=== PATIENT | female | born 1975 | race Caucasian/White ===

== ENCOUNTER 2017-03-19 11:47 | Inpatient (IN) | payer BC ==
[2017-03-19] VITALS (12 sets, daily range): BP systolic 88–124; BP diastolic 40–76
[~2017-03-19] VITALS: Ht 170.2 cm; Wt 85.2 kg
[~2017-03-19 11:47] MED LIST changes: -BUPR150T6 PO; -ONDA8TAB13 PO
--- OUTSIDE RECORDS SUMMARY | 2017-03-19 11:54 | XMS REPORT | Summary of Care ---
Author Author Aramis Cruz M.D. Unknown Address [address], [place] [id number] Phone Unavailable Care Team Providers Care Blowing Weasand Name Role Phone Bubba Cruz M.D. Unavailable Unavailable Alan Meier PP Unavailable Unavailable Unavailable Functional Status Functional Status Health Issues Name Dates Details Functional status health issues are not documented Status: Cognitive Status Health Issues Name Dates Details Cognitive status health issues are not documented Status: Problems Name Dates Details Sensorineural hearing loss (389.10, H90.5) Status: Active Endometriosis (617.9, N80.9) Status: Active Female pelvic pain (625.9, R10.2) Status: Active Myalgia (729.1, M79.1) Status: Active Multiple somatic complaints (780.99, R68.89) Status: Active Numbness (782.0, R20.0) Status: Active Thoracic spine pain (724.1, M54.6) Status: Active Lower back pain (724.2, M54.5) Status: Active Paresthesia (782.0, R20.2) Status: Active Medications Name Dates Details Multi Vitamin/Minerals Oral Tablet Refills: 0 Started 01-Oct-2012 ActiveCalcium 600 MG Oral Tablet TAKE 1 TABLET DAILY. Refills: 0 Aramis Cruz M.D. Started 10-Jan-2015 ActiveVitamin D 400 UNIT Oral Tablet Take 1 tablet daily Refills: 0 Aramis Cruz M.D. Started 10-Jan-2015 ActiveFlax Seed Oil 1000 MG Oral Capsule TAKE DIRECTED. Refills: 0 Aramis Cruz M.D. Started 10-Jan-2015 ActiveVitamin C 500 MG Oral Tablet TAKE 1 TABLET DAILY. Refills: 0 Aramis Cruz M.D. Started 10-Feb-2015 Active Allergies and Adverse Reactions Name Dates Details No Known Drug Allergies Status: Active Past Medical History Name Dates Details Endometriosis (617.9, N80.9) Status: Active History of constipation (V12.79, Z87.19) Status: Resolved History of diarrhea (V12.79, Z87.19) Status: Resolved History of dizziness (V13.89, Z87.898) Status: Resolved History of Generalized pain (780.96, R52) Status: Resolved History of hypertension (V12.59, Z86.79) Status: Resolved History of low back pain (V13.59, Z87.39) Status: Resolved History of migraine (V12.49, Z86.69) Status: Resolved History of Neck stiffness (723.5, M43.6) Status: Resolved History of obesity (V13.89, Z87.898) Status: Resolved History of seizure disorder (V12.49, Z86.69) Status: Resolved History of sinusitis (V12.69, Z87.09) Status: Resolved History of syncope (V15.89, Z91.89) Status: Resolved History of Tinnitus of both ears (388.30, H93.13) Status: Resolved History of urinary frequency (V13.09, Z87.448) Status: Resolved Procedures Procedure Dates Details History of Hysterectomy History of Sinus Surgery History of Cholecystotomy History of Gastric Surgery For Morbid Obesity Laparoscopic Longitudinal Gastrectomy Completed:23-Feb-2013 History of Knee Surgery History of Appendectomy Neuro Peripheral Neuropathy Profile 9017 Ordered:24-Jan-2015 MRI CERVICAL SPINE Ordered:12-Jan-2015 Immunization Name Dates Details Immunizations not documented Family History Unknown Family Member Name Dates Details Family history of Hypertension (V17.49) Comments: Family History Status: Active Family history of Reported Cholesterol Level Was High Comments: Family History Status: Active Family history of Gallbladder Disease Comments: Family History Status: Active Family history of Diabetes Mellitus (V18.0) Comments: Family History Status: Active natural son Name Dates Details Family History Of Autism (V17.0, Z81.8) Status: Active Family history of blood dyscrasia (V18.3, Z83.2) Status: Active Grandfather Name Dates Details Family history of malignant neoplasm of urinary bladder (V16.52, Z80.52) Status: Active Mother Name Dates Details Family history of Hyperlipidemia, mild (272.4, E78.5) Status: Active Father Name Dates Details Family history of Hyperlipidemia, mild (272.4, E78.5) Status: Active Family history of skin cancer (V16.8, Z80.8) Status: Active Family history of cardiac disorder (V17.49, Z82.49) Status: Active Sister Name Dates Details Family history of Alcohol dependence (303.90, F10.20) Status: Active Family history of seizures (V19.8, Z84.89) Status: Active Family history of multiple sclerosis (V17.2, Z82.0) Status: Active Social History Name Dates Details Smoking StatusNever smoker Vital Signs Date Test Result Details 10-Feb-2015 09:00 BP Systolic 124 mm[Hg] Status: BP Diastolic 80 mm[Hg] Status: Heart Rate 76 /min Status: Weight 168.125 lb Status: Body Mass Index Calculated 26.33 kg/m2 Status: Body Surface Area Calculated 1.88 m2 Status: 24-Jan-2015 10:02 BP Systolic 126 mm[Hg] Status: BP Diastolic 66 mm[Hg] Status: Heart Rate 76 /min Status: Results Date Description Value Details 21-Jan-2015 12:36 MRI CERVICAL SPINE WITHOUT AND WITH CONTRAST (if Hx of Neck Surgery, CA, MS or RA) Comments: Exam Date: 09:44Dictation Date: 12:36 XMR SPINE CERVICAL WO/W MARIN (Better) 12:43 MRI THORACIC AND LUMBAR SPINE Comments: Exam Date: 09: 45Dictation Date: 12:43 XMR SPINE THOR/LUMB (Better) 24-Jan-2015 11:53 CBC w/ Auto Diff 7150 WBC 6.7 K/uL (Better) Range: 4.5-11.0 RBC 4.01 mil/uL (Better) Range: 3.60-5.00 HGB 12.2 g/dL (Better) Range: 12.0-16.0 HCT 35.6 % (Below low threshold) Range: 36.0-48.0 MCV 88.7 fL (Better) Range: 80.0-99.0 MCH 30.5 pg (Better) Range: 27.3-32.5 MCHC 34.4 % (Better) Range: 32.0-36.0 RDW 13.3 % (Better) Range: 11.6-14.8 PLATELETS 261 K/uL (Better) Range: 150-400 MPV 7.8 fL (Better) Range: 6.0-11.0 %NEUTRO 61.6 % (Better) Range: 37.0-80.0 %LYMPHS 28.0 % (Better) Range: 13.0-50.0 %MONO 3.1 % (Better) Range: 0.0-12.0 %EOS 5.1 % (Better) Range: 0.0-7.0 %BASO 1.1 % (Better) Range: 0.0-2.5 %RANDAL 1.1 % (Better) Range: 0.0-5.0 NEUTRO 4.1 K/uL (Better) Range: 2.0-6.9 LYMPHS 1.9 K/uL (Better) Range: 0.6-3.4 MONOS 0.2 K/uL (Better) Range: 0.0-0.9 EOS 0.3 K/uL (Better) Range: 0.0-0.7 BASO 0.1 K/uL (Better) Range: 0.0-0.2 12:18 Comprehensive Metabolic Panel 1212 SODIUM 136 mmol/L (Better) Range: 133-144 POTASSIUM 3.4 mmol/L (Below low threshold) Range: 3.5-5.1 CHLORIDE 101 mmol/L (Better) Range: 98-110 CARBON DIOXIDE 24.5 mmol/L (Better) Range: 23.0-33.0 ANION GAP 11 mmol/L (Better) Range: 6-16 BUN 14 mg/dL (Better) Range: 7-18 CREATININE, SERUM 0.65 mg/dL (Better) Range: 0.43-1.13 BUN:CREATININE RATIO 22 (Better) EST GFR, >60 ml/min (Better) Range: >60 EST GFR, NON-AFR VIETNAMESE >60 ml/min (Better) Range: >60 Comments: EST GFR is reported in ml/min per 1.73 m2 of body surface area. For -Croatian, please multiple result by 1.2.----- GLUCOSE 88 mg/dL (Better) Range: 70-100 ALK PHOSPHATASE 73 U/L (Better) Range: 46-116 Comments: Please Note: New Reference Range effective 2014.----- TOTAL BILIRUBIN 0.60 mg/dL (Better) Range: 0.20-1.00 AST 21 U/L (Better) Range: 8-35 ALT 32 U/L (Better) Range: 12-78 ALBUMIN 3.8 g/dL (Better) Range: 3.4-5.0 TOTAL PROTEIN 7.3 g/dL (Better) Range: 6.4-8.2 A/G RATIO 1.1 units (Better) Range: 1.0-1.8 CALCIUM 8.3 mg/dL (Below low threshold) Range: 8.5-10.1 12:19 ERYTHROCYTE SED RATE 7800 ERYTHROCYTE SED RATE 10 mm/60 min. (Better) Range: 0-20 12:24 FREE T4 3604 FREE T4 0.96 ng/dL (Better) Range: 0.80-1.67 12:24 VITAMIN B12 3606 VITAMIN B12 326 pg/mL (Better) Range: 211-911 12:24 FOLATE 3608 FOLATE >20 ng/mL (Above high threshold) Range: 5.4-20.3 12:24 THYROID STIM. HORMONE 3602 THYROID STIM. HORMONE 1.902 uIU/mL (Better) Range: 0.550-4.780 Comments: \[id number]\No established reference ranges for infants and children < 2 years of ageNo established reference ranges for infants and children <2 years of age----- 26-Jan-2015 13:46 ANTINUCLEAR ANTIBODIES 3902 ANTINUCLEAR ANTIBODIES 58 AU/mL (Better) Range: 0-120 Comments: REFERENCE VALUE INTERPRETATION 0-99 U/mL - NEGATIVE 100 - 120 U/mL - EQUIVOCAL >120 U/mL - POSITIVE--- -- 15:47 Protein Elec + Interp, Serum [id number] Comments: TESTING PERFORMED AT : [DA] [facility], [address], PHONE: [phone], PROGRAM LEAD: ISA HATFIELD MDTESTING PERFORMED AT: [ BN] [facility], [address], PHONE: , PROGRAM LEAD: ARAMIS MICHAEL MD PROTEIN, TOTAL, SERUM 6.5 G/DL (Better) Range: 6.0-8.5 ALBUMIN 3.7 G/DL (Better) Range: 3.2-5.6 IFOOJ-3-QTJLLEVJ 0.2 G/DL (Better) Range: 0.1-0.4 VLFPU-9-JNKHCHKG 0.5 G/DL (Better) Range: 0.4-1.2 BETA GLOBULIN 1.0 G/DL (Better) Range: 0.6-1.3 GAMMA GLOBULIN 1.2 G/DL (Better) Range: 0.5-1.6 M-SPIKE NOT OBSERVED G/DL (Better) Range: NOT OBSERVED GLOBULIN, TOTAL 2.8 G/DL (Better) Range: 2.0-4.5 A/G RATIO 1.3 (Better) Range: 0.7-2.0 PLEASE NOTE: COMMENT (Better) Comments: PROTEIN ELECTROPHORESIS SCAN WILL FOLLOW VIA COMPUTER,MAIL, OR TILE FINISHER DELIVERY.----- P E INTERPRETATION, S COMMENT (Better) Comments: THE SPE PATTERN APPEARS ESSENTIALLY UNREMARKABLE. EVIDENCEOF MONOCLONAL PROTEIN IS NOT APPARENT. ----- 15:47 West Nile Virus Antibody,Serum [id number] Comments: TESTING PERFORMED AT: [] [facility], [address], PHONE: [phone], PROGRAM LEAD: ISA HATFIELD MDTESTING PERFORMED AT: [ ] [facility], [address], PHONE: , PROGRAM LEAD: ARAMIS MICHAEL MD WEST NILE VIRUS, IGG NEGATIVE (Better) Range: NEGATIVE Comments: NO DETECTABLE WEST NILE VIRUS IGG ANTIBODY. IF A RECENTINFECTION IS SUSPECTED, ANOTHER SPECIMEN SHOULD BESUBMITTED FOR TESTING WITHIN 7-14 DAYS.---- - WEST NILE VIRUS, IGM NEGATIVE (Better) Range: NEGATIVE Comments: NO DETECTABLE WEST NILE VIRUS IGM ANTIBODY. IF A RECENTINFECTION IS SUSPECTED, ANOTHER SPECIMEN SHOULD BESUBMITTED FOR TESTING WITHIN 7-14 DAYS.---- - 27-Jan-2015 08:31 Lyme, Western Blot, Serum [id number] Comments: TESTING PERFORMED AT: [] [facility], [address], PHONE: [phone], PROGRAM LEAD: ARAMIS MICHAEL MD IGG P93 AB. ABSENT (Better) IGG P66 AB. ABSENT (Better) IGG P58 AB. ABSENT (Better) IGG P45 AB. ABSENT (Better) IGG P41 AB. ABSENT (Better) IGG P39 AB. ABSENT (Better) IGG P30 AB. ABSENT (Better) IGG P28 AB. ABSENT (Better) IGG P23 AB. ABSENT (Better) IGG P18 AB. ABSENT (Better) LYME IGG WB INTERP. NEGATIVE (Better) Comments: POSITIVE: 5 OF THE FOLLOWING BORRELIA-SPECIFIC BANDS: 18 ,23,28,30,39,41,45,58, 66, AND 93. NEGATIVE: NO BANDS OR BANDING PATTERNS WHICH DO NOT MEET POSITIVE CRITERIA.----- IGM P41 AB. ABSENT (Better) IGM P39 AB. ABSENT (Better) IGM P23 AB. ABSENT (Better) LYME IGM WB INTERP. NEGATIVE (Better) Comments: NOTE: AN EQUIVOCAL OR POSITIVE EIA RESULT FOLLOWED BY ANEGATIVE WESTERN BLOT RESULT IS CONSIDERED NEGATIVE. ANEQUIVOCAL OR POSITIVE EIA RESULT FOLLOWED BY A POSITIVEWESTERN BLOT IS CONSIDERED POSITIVE BY THE CDC.POSITIVE: 2 OF THE FOLLOWING BANDS: 23,39 OR 41NEGATIVE: NO BANDS OR BANDING PATTERNS WHICH DO NOT MEETPOSITIVE CRITERIA.CRITERIA FOR POSITIVITY ARE THOSE RECOMMENDED BYCDC/ASTPHLD. P23=OSP C , W09=[id number]:SERA FROM INDIVIDUALS WITH THE FOLLOWING MAY CROSS REACTIN THE LYME WESTERN BLOT ASSAYS: OTHER SPIROCHETAL DISEASES(PERIODONTAL DISEASE, LEPTOSPIROSIS, RELAPSING FEVER, YAWS,AND PINTA); CONNECTIVE AUTOIMMUNE ( RHEUMATOID ARTHRITIS ANDSYSTEMIC LUPUS ERYTHEMATOSUS AND ALSO INDIVIDUALS WITHANTINUCLEAR ANTIBODY); OTHER INFECTIONS (CHARLOTTE MOUNTAINSPOTTED FEVER; SMILEY-GALLAGHER VIRUS, AND CYTOMEGALOVIRUS).----- 08:32 Smiley Gallagher Virus DNA, Qualitative, Real-Time PCR [id number] Comments : [facility] performed at: [employer], [employer] [address] [place] [address], [address], Block Out Machine Operator: Dre Vora MD,PhDQuest Collection Date/Time: [id number] Results Received Date/Time: [id number] Reported Date/Time: [id number] SOURCE BLOOD (Better) Comments: [XE]----- EBV DNA, QL PCR NOT DETECTED (Better) Comments: REFERENCE RANGE: NOT DETECTEDThis test was developed and its performancecharacteristics have been determined by [facility]. It has not been cleared or approvedby the U.S. Food and Drug Administration. The FDAhas determined that such clearance or approval isnot necessary. Performance characteristics referto the analytical performance of the test.[XE]----- Plan of Care Planned Observations Name Dates Details Planned Goals not documented Goal Instructions Instructions not documented Encounters Appointment; Aramis Cruz Encounter Diagnosis: Problem not documented On 10-Feb-2015 09:00 Appointment; Aramis Cruz Encounter Diagnosis: Problem not documented On 24-Jan-2015 10:00 Appointment; Aramis Cruz Encounter Diagnosis: Problem not documented On 10-Jan-2015 14:30 Appointment; Ginger Fenton Encounter Diagnosis: Problem not documented On 05-Mar-2014 10:15
[2017-03-19] MEDS ORDERED: DEXTROSE 50% 25 GM/50 ML SYRINGE IV ONE ×3 (12:00→15:45)
[2017-03-19 12:07] LABS: BASOPHILS % (AUTO) 1 % (0-2); EOSINOPHILS # (AUTO) 0.3 10^3uL; EOSINOPHILS % (AUTO) 4 % (0-4); LYMPHOCYTES # (AUTO) 2.1 X10^3; MEAN CORPUSCULAR HEMOGLOBIN 30.5 PG (26.0-34.0); MEAN CORPUSCULAR HGB CONC 34.3 g/dL (31.0-37.0); MEAN CORPUSCULAR VOLUME 89 FL (80-100); MEAN PLATELET VOLUME 10.6 FL (6.0-9.5); MONOCYTES # (AUTO) 0.5 X10^3; MONOCYTES % (AUTO) 7 % (3-11); NEUTROPHILS # (AUTO) 3.9 X10^3; NEUTROPHILS % (AUTO) 58 % (51-67); PLATELET COUNT 251 10^3uL (150-450); WHITE BLOOD COUNT 6.74 10^3uL (4.0-11.0)
[2017-03-19 12:08] LABS: BILIRUBIN,URINE Negative (Negative); CLARITY,URINE Clear; COLOR,URINE Yellow; GLUCOSE, URINE (UA) Trace (Negative); LEUKOCYTE ESTERASE ,URINE Negative (Negative); PH,URINE 5.5 (5.0 - 8.0); UROBILINOGEN,URINE 0.2 mg/dL (0.2-1.0)
[2017-03-19 12:16] LABS: ALKALINE PHOSPHATASE 97 U/L (38-126); ANION GAP 15.8 MEQ/L (3-15); BUN/CREATININE RATIO 26 (10-20); CALCULATED IONIZED CALCIUM 4.1 mg/dL (3.8-4.6); TOTAL PROTEIN 7.1 g/dL (6.4-8.5)
--- NOTE | 2017-03-19 12:25 | NUR ---
CALLED POISON CONTROL, THEY STATE HANG DEXTROSE NEEDED, EKG, CMP, MAG, PHOS, HUMAN RESOURCE INTERNSHIP, MONITOR FOR RESP DEPRESSION, COULD GIVE ROMAZICON IF NEEDED
[2017-03-19 12:32] LABS: MAGNESIUM* 2.1 mg/dL (1.6-2.3)
[2017-03-19] MEDS ORDERED: D5LR 1,000 ML IV SCH (12:50)
[2017-03-19] MEDS ORDERED: DEXTROSE 50% 25 GM/50 ML SYRINGE ONE (13:05)
[2017-03-19] MEDS ORDERED: OCTREOTIDE 100 MCG/ML (SandoSTATIN) 1 ML VIAL SC ONE (13:30)
--- NOTE | 2017-03-19 13:33 | NUR ---
DR LIN CALLED BY DR SONI. CL
--- NOTE | 2017-03-19 13:59 | NUR ---
PT UNABLE TO VOID ON BEDPAN, STATES SHE "MIGHT NEED ANOTHER CATHETER". CL
--- NOTE | 2017-03-19 15:15 | NUR ---
Reported to DR. Delgado that patient c/o of "squeezing, tight pain around the ribs, hurts to breath. I usually get this at night, not during the day."
[2017-03-19] MEDS ORDERED: ONDANSETRON 2 MG/ML (Z0FRAN) 2 ML VIAL IV ONE ×2 (15:25→15:55)
[2017-03-19] MEDS ORDERED: HYDROmorphone 1 MG/ML (DILAUDID) SYRINGE IV ONE (15:25)
[2017-03-19] MEDS ORDERED: DEXTROSE 10% 1,000 ML IV SCH ×2 (15:50→16:45)
--- NOTE | 2017-03-19 16:00 | Diagnostic Imaging Report ---
INDICATION: Chest pain. COMPARISON: No previous for comparison. FINDINGS: The lungs are well-aerated. There are no infiltrates present. There are no masses. The heart is not enlarged. No evidence of pulmonary edema. No pneumothorax or pleural effusion. No bony abnormalities. IMPRESSION: Normal PA and lateral chest. Dictated by: Dictated on workstation # [id number]
--- NOTE | 2017-03-19 16:02 | NUR ---
PT STATES HER PAIN IS BACK AGAIN & WAS DOWN TO 3/10 UNTIL CXR WHEN SHE HAD TO BE SAT UP. PT PAIN UP TO 6/10 NOW. MARJORIE IN TO TALK W/PT, HUSB & PT FRIEND. CL
[2017-03-19] MEDS ORDERED: HYDROmorphone 2 MG/ML (DILAUDID) 1 ML SYRINGE IV ONE (16:35)
--- NOTE | 2017-03-19 16:35 | History and Physical (E) ---
History & Physical PCP: Alan Meier MD CC: Insulin/Valium Overdose, suicide attempt HPI: Lexy is a 41 year old female admitted through the ED with intentional overdose of Humalog insulin and po valium 5 mg tablets( not sure how many tablets). She also took shots of alcohol with the valium- level was 53. She stated she wanted to kill herself due to stress in the family. This was her sons medications. Poison control notified. Glucose was in the 30s when she arrived to the ED. She has not done this before. She has stress due to her sons - one is a type 1 diabetic, one with a seizure disorder, and one converting from a boy to a girl (transgender) and goes to [facility]. After she took the meds she felt scared and called her friend Yohana who came to her house. When I asked her how she did it, states " I cuauhtemoc it up and shot it in my vein". The actual amount of insulin is unknown. She complains of squeezing on both sides of her ribs. EKG negative. In the ED she has received 2-3 amps D50, octreotide was given in the ED, blood sugars every 15 minutes are stable, last one 188. She is here in the ED with her and her friend Yohana. PMH: Anxiety Depression Panic attacks PSH: Bariatric surgery 2013 Partial Hysterectomy D&C Sinus Surgery ALLERGIES: NONE HOME MEDICATIONS: NONE- was on antidepressant given to her by Mulu SANCHEZ but stopped it due to insomnia FH: Mother has bipolar d/o Father cardiac issues Older sister has MS SH: , non smoker, rare alcohol, not working, has 3 children 2 sons and a third one doing gender transformation to a girl ROS CONSTITUTION: Denies weight loss or gain. Denies fever or chills. HEENT: No change in vision or hearing. No sores in mouth, sore throat. CV: No chest pain, palpitations. PULM: No cough, shortness of breath, difficulty breathing. GI: No upset stomach, nausea, vomiting, constipation, or diarrhea. No blood in stool. : No dysuria. No blood in urine. MS: No new muscle or joint aches and pains. NEURO: No numbness or tingling. No weakness. INTEG: No rashes, lesions, or sores. ENDO: No heat or cold intolerance. No polydipsia or polyuria. HEME/LYMPH: No easy bruising or bleeding. No swollen glands. PSYCH: as per HPI- suicide attempt today OBJECTIVE Vitals: Vital Signs Date Time Temp Pulse Resp B/P Pulse Ox O2 Delivery O2 Flow Rate FiO2 03/19/17 11:51 99.1 73 14 123/55 100 Room Air GEN: Awake, alert, oriented, NAD- at times tearful HEENT: EOMI, PERRL, dry oral mucosa. CV: RRR S1 S2 normal with no murmur LUNGS: CTA B ABD: Soft, NT/ND with normal bowel sounds. EXTR: No C/C/E. Normal peripheral pulses. INTEG: No rash. NEURO: No focal motor neuro deficit. Weight: 84 kg LABS: CBC BMP Last 24 Hrs 03/19/17 11:37 Laboratory Results Past 24 Hrs 03/19/17 10:55: Urine Bilirubin Negative, Urine Blood Negative, Urine Clarity Clear, Urine Collection Type Catheter, Urine Color Yellow, Urine Glucose (UA) Trace, Urine Ketones Negative, Urine Leukocyte Esterase Negative, Urine Nitrite Negative, Urine Protein Negative, Urine Specific [place] <=1.005, Urine Urobilinogen 0.2, Urine pH 5.5 03/19/17 11:37: Acetaminophen Level < 10.0, Alanine Aminotransferase (ALT/SGPT) 39, Albumin 4.0 , Albumin/Globulin Ratio 1.290, Alkaline Phosphatase 97, Anion Gap 15.8, Aspartate Amino Transf (AST/SGOT) 25, BUN/Creatinine Ratio 26, Basophils # (Auto ) 0.0, Basophils (%) (Auto) 1, Blood Urea Nitrogen 17, Calcium Level 9.4, Calcium/Ionized Calcium Ratio 4.1, Calculated Osmolality 277, Carbon Dioxide Level 23, Chloride Level 109, Creatinine 0.65, Eosinophils # (Auto) 0.3, Eosinophils (%) (Auto) 4, Estimat Glomerular Filtration Rate 121.5, Estimated GFR (Non- 100.5, Glucose Level 38, Hematocrit 38.80, Hemoglobin 13.3, Lymphocytes # (Auto) 2.1, Lymphocytes (%) (Auto) 31, Magnesium Level 2.1, Mean Corpuscular Hemoglobin 30.5, Mean Corpuscular Hemoglobin Concent 34.3, Mean Corpuscular Volume 89, Mean Platelet Volume 10.6, Monocytes # (Auto) 0.5, Monocytes (%) (Auto) 7, Neutrophils # (Auto) 3.9, Neutrophils (%) (Auto) 58, Phosphorus Level 2.4, Platelet Count 251, Potassium Level 3.6, Red Blood Count 4.36, Red Cell Distribution Width 12.1, Salicylates Level < 1.0, Serum Alcohol 53.0, Sodium Level 144, Total Bilirubin 0.4, Total Protein 7.1, White Blood Count 6.74 IMAGING ASSESSMENT/PLAN 41 year old female admitted 03-19-17 through the ED for intentional OD on insulin and valium- Suicide attempt Depression Anxiety Panic Attacks F/V/E- Continue D10 at 100 cc /hr, clears until she can tolerate diet Code status- Full code Disposition- Inpatient for above issues, consult PV in am for screening - likely needs inpt psyche Pt seen and examined with MACHINE ERECTOR, agree with above. Pt says she wanted to when she started the overdose, but then didn't take all the insulin she had drawn up and called a friend. She still wants to be at this time, but doesn't think she will kill herself. Will have [facility] evaluate her tomorrow then go from there. Allergies/Home Medications Allergies: Coded Allergies: No Known Drug Allergies (Unverified , 05/09/15) Reported Home Medications Scheduled Bupropion (Bupropion XL) 150 MG PO DAILY (Reported) Scheduled PRN Ondansetron (Ondansetron ODT) 8 MG PO Q8H PRN PRN NAUSEA/VOMITING (Reported) Discontinued Medications Sertraline HCl (Zoloft) 25 MG PO HS (Reported) Discontinued Reason: Unknown Copies to: End of Report . Natividad Mooney APRN March 19, 2017 16:35 Manuel Coates MD March 19, 2017 21:10
[2017-03-19] MEDS ORDERED: PROMETHAZINE HCL INJ 12.5 MG in SODIUM CHLORIDE 25 ML IV PRN (16:40)
[2017-03-19] MEDS ORDERED: IBUPROFEN 600 MG (MOTRIN) TAB PO PRN (16:40)
[2017-03-19] MEDS ORDERED: ONDANSETRON 2 MG/ML (Z0FRAN) 2 ML VIAL IV PRN (16:40)
[2017-03-19] MEDS ORDERED: ACETAMINOPHEN 325 MG TAB (TYLENOL) PO PRN (16:40)
[2017-03-19] MEDS ORDERED: KETOROLAC 15 MG/ML (TORADOL) 1 ML VIAL IV PRN (16:40)
[2017-03-19] MEDS ORDERED: ONDA8TAB13 PO (16:44)
[2017-03-19] MEDS ORDERED: KETOROLAC 30 MG/ML (TORADOL) 1 ML VIAL IV ONE (16:50)
[2017-03-19] MEDS ORDERED: BUPR150T6 PO (17:05)
--- NOTE | 2017-03-19 17:05 | NUR ---
A 41 yr old white female admitted to room 342 for overdose of insulin and attempted suicide. Pt is alert and oriented at this time. Pt walked from the stretcher to the bed with the assistance of one staff. Monitor applied showing SB in the 50's. Other VS WNL. SL in RAC is patent without redness or edema. Radial pulses palpated bilaterally, strong and regular. Veterinary Meat Inspector are equal bilaterally. Dorsal pulses are strong bilaterally. Accu checks being taken as ordered. 1834 D 10 IV was discontinues. 1899 Report given to Ellen BRUSH and care relinquished.
[2017-03-19] MEDS ORDERED: NS FLUSH 3 ML PRN IV (17:10)
[2017-03-19] MEDS: PANTOPRAZOLE 40 MG (PROTONIX) TAB PO SCH (18:22)
[2017-03-19] MEDS: NS FLUSH 10 ML PRN IV ×2 (19:06→21:16)
[2017-03-19] MEDS: NS FLUSH 3 ML DAILY IV SCH (19:07)
--- NOTE | 2017-03-19 19:15 | NUR ---
DR. LIN AT BEDSIDE.
--- NOTE | 2017-03-19 20:44 | NUR ---
PATIENT CALLED STATING SHE IS STARTING TO "FEEL FUNNY" STATES WHEN HER BLOOD GLUCOSE DROPPED LOW IN THE ER SHE FELT FUNNY THEN, HOWEVER SHE IS DEVELOPING A MIGRAINE AT THIS TIME AND THOSE MAKE HER "FEEL FUNNY" ALSO. ACCU CHECK AT THIS TIME 119. WILL DISCUSS MIGRAINE MANAGEMENT WITH PHYSICIAN. WILL CONTINUE TO MONITOR AND ASSESS NEEDED.
--- NOTE | 2017-03-19 20:48 | NUR ---
DISCUSSED WITH DR. NIX PATIENT STATUS. INSTRUCTED TO GIVE PATIENT SOME TYLENOL AND SOME SORT OF CAFFEINE FOR MIGRAINE. ALSO DISCUSSED AVAILABLE TORADOL. WILL EXPLAIN OPTION TO PATIENT AND PROCEED ACCORDINGLY.
[2017-03-19] MEDS ORDERED: KETOROLAC 30 MG/ML (TORADOL) 1 ML VIAL ONE (21:13)
--- NOTE | 2017-03-19 22:00 | NUR ---
DISCUSSED PATIENT STATUS WITH DR. NIX PER POISON CONTROL RECOMMENDATIONS. RECEIVED ORDER FOR FLUIDS AND HYPOGLYCEMIC PROTOCOL. WILL PROCEED ORDERED. WILL CONTINUE TO MONITOR AND ASSESS NEEDED.
--- NOTE | 2017-03-19 22:08 | NUR ---
PATIENT UPDATE PROVIDED TO POISON CONTROL. RECOMMENDED TO NOTIFY PHYSICIAN OF 28 POINT DROP IN GLUCOSE IN 90 MINUTES.
[2017-03-19] MEDS ORDERED: DEXTROSE 50% 25 GM/50 ML SYRINGE IV PRN (22:25)
[2017-03-19] MEDS ORDERED: DEXTROSE ORAL GEL (GLUTOSE 40%) 15 GM TUBE PO PRN (22:25)
[2017-03-19] MEDS ORDERED: GLUCAGON EMERGENCY 1 MG/KIT IM PRN (22:25)
[2017-03-19] MEDS: D5 NS IV 1,000 ML IV SCH (22:33)
[2017-03-20] VITALS (16 sets, daily range): BP systolic 97–147; BP diastolic 43–67
--- NOTE | 2017-03-20 04:39 | NUR ---
UPDATE PROVIDED TO POISON CONTROL AT THIS TIME.
[2017-03-20 06:10] LABS: BASOPHILS % (AUTO) 1 % (0-2); EOSINOPHILS # (AUTO) 0.3 10^3uL; EOSINOPHILS % (AUTO) 4 % (0-4); LYMPHOCYTES # (AUTO) 1.6 X10^3; MEAN CORPUSCULAR HEMOGLOBIN 30.3 PG (26.0-34.0); MEAN CORPUSCULAR HGB CONC 33.6 g/dL (31.0-37.0); MEAN CORPUSCULAR VOLUME 90 FL (80-100); MEAN PLATELET VOLUME 10.3 FL (6.0-9.5); MONOCYTES # (AUTO) 0.5 X10^3; MONOCYTES % (AUTO) 8 % (3-11); NEUTROPHILS % (AUTO) 62 % (51-67); PLATELET COUNT 203 10^3uL (150-450); WHITE BLOOD COUNT 6.53 10^3uL (4.0-11.0)
[2017-03-20 06:52] LABS: ANION GAP 9.4 MEQ/L (3-15); TOTAL PROTEIN 5.9 g/dL (6.4-8.5)
--- NOTE | 2017-03-20 07:00 | NUR ---
BG 81 - reports JAMES gone - "I did not sleep much last night" - see ICU assessment - IV RAC 18G c D5NS @ 100 mL/hr
--- NOTE | 2017-03-20 08:00 | NUR ---
BG 74 - up to void and AM cares @ sink side - back to bed for CL breakfast - reports "HX of gastric sleeve OR 4 years ago" - "sugar makes me nauseated" - sipping on chicken broth
[2017-03-20] MEDS: D5 NS IV 1,000 ML IV SCH (08:13)
[2017-03-20] MEDS: PANTOPRAZOLE 40 MG (PROTONIX) TAB PO SCH (08:13)
[2017-03-20] MEDS: NS FLUSH 3 ML DAILY IV SCH (08:21)
--- NOTE | 2017-03-20 09:00 | NUR ---
Dr Coates vo: neuro's [id number] - continue hourly BG = 72
--- NOTE | 2017-03-20 09:11 | NUR ---
Significant other @ bedside
--- NOTE | 2017-03-20 09:40 | Progress Note (E) ---
Progress Note S: Awake alert, BS still 70s despite being on D5NS, had chicken broth and kept it down. Long talk with she and her . She still feels sad and depressed and has dark thoughts about harming herself. She doesn't explain in much detail about "her plan" but states she needs help. Was in [facility] in [facility]- Agreeable to go there. She needs evaluation as she is still having suicidal thoughts and ideations. Her agrees that she needs help. Vital Signs Date Time Temp Pulse Resp B/P Pulse Ox O2 Delivery O2 Flow Rate FiO2 03/20/17 09:07 56 03/20/17 07:00 97.8 14 147/59 100 Room air I & O Past 24 hrs 03/20/17 07:00 Intake Total 736 ml Output Total 400 ml Balance 336 ml Intake Oral 0 ml IV Total 736 ml Output Urine Total 400 ml GEN: Awake, alert, oriented, NAD- at bedside, she is stoic this am- flat affect HEENT: EOMI, PERRL, moist oral mucosa. CV: RRR S1 S2 normal with no murmur LUNGS: CTA B ABD: Soft, NT/ND with normal bowel sounds. EXTR: No C/C/E. Normal peripheral pulses. INTEG: No rash. NEURO: No focal motor neuro deficit. Weight: 84 kg LABS: CBC BMP Last 24 Hrs 03/19/17 11:37 Laboratory Results Past 24 Hrs 03/19/17 10:55: Urine Bilirubin Negative, Urine Blood Negative, Urine Clarity Clear, Urine Collection Type Catheter, Urine Color Yellow, Urine Glucose (UA) Trace, Urine Ketones Negative, Urine Leukocyte Esterase Negative, Urine Nitrite Negative, Urine Protein Negative, Urine Specific [place] <=1.005, Urine Urobilinogen 0.2, Urine pH 5.5 03/19/17 11:37: Acetaminophen Level < 10.0, Alanine Aminotransferase (ALT/SGPT) 39, Albumin 4.0 , Albumin/Globulin Ratio 1.290, Alkaline Phosphatase 97, Anion Gap 15.8, Aspartate Amino Transf (AST/SGOT) 25, BUN/Creatinine Ratio 26, Basophils # (Auto ) 0.0, Basophils (%) (Auto) 1, Blood Urea Nitrogen 17, Calcium Level 9.4, Calcium/Ionized Calcium Ratio 4.1, Calculated Osmolality 277, Carbon Dioxide Level 23, Chloride Level 109, Creatinine 0.65, Eosinophils # (Auto) 0.3, Eosinophils (%) (Auto) 4, Estimat Glomerular Filtration Rate 121.5, Estimated GFR (Non- 100.5, Glucose Level 38, Hematocrit 38.80, Hemoglobin 13.3, Lymphocytes # (Auto) 2.1, Lymphocytes (%) (Auto) 31, Magnesium Level 2.1, Mean Corpuscular Hemoglobin 30.5, Mean Corpuscular Hemoglobin Concent 34.3, Mean Corpuscular Volume 89, Mean Platelet Volume 10.6, Monocytes # (Auto) 0.5, Monocytes (%) (Auto) 7, Neutrophils # (Auto) 3.9, Neutrophils (%) (Auto) 58, Phosphorus Level 2.4, Platelet Count 251, Potassium Level 3.6, Red Blood Count 4.36, Red Cell Distribution Width 12.1, Salicylates Level < 1.0, Serum Alcohol 53.0, Sodium Level 144, Total Bilirubin 0.4, Total Protein 7.1, Troponin I < 0.012, White Blood Count 6.74 03/20/17 05:55: Alanine Aminotransferase (ALT/SGPT) 45, Albumin 3.0, Albumin/Globulin Ratio 1.034, Alkaline Phosphatase 65, Anion Gap 9.4, Aspartate Amino Transf (AST/SGOT ) 32, BUN/Creatinine Ratio 17, Basophils # (Auto) 0.0, Basophils (%) (Auto) 1, Blood Urea Nitrogen 11, Calcium Level 8.2, Calcium/Ionized Calcium Ratio 4.0, Calculated Osmolality 275, Carbon Dioxide Level 29, Chloride Level 109, Creatinine 0.66, Eosinophils # (Auto) 0.3, Eosinophils (%) (Auto) 4, Estimat Glomerular Filtration Rate 119.4, Estimated GFR (Non- 98.7, Glucose Level 83, Hematocrit 34.80, Hemoglobin 11.7, Lymphocytes # (Auto) 1.6, Lymphocytes (%) (Auto) 25, Mean Corpuscular Hemoglobin 30.3, Mean Corpuscular Hemoglobin Concent 33.6, Mean Corpuscular Volume 90, Mean Platelet Volume 10.3, Monocytes # (Auto) 0.5, Monocytes (%) (Auto) 8, Neutrophils # (Auto) 4.0, Neutrophils (%) (Auto) 62, Platelet Count 203, Potassium Level 3.6, Red Blood Count 3.86, Red Cell Distribution Width 12.0, Sodium Level 143, Total Bilirubin 0.5, Total Protein 5.9, White Blood Count 6.53 IMAGING ASSESSMENT/PLAN 41 year old female admitted 03-19-17 through the ED for intentional OD on insulin and valium- Suicide attempt Depression Anxiety Panic Attacks F/V/E- Continue D10 at 100 cc /hr, clears until she can tolerate diet Code status- Full code Disposition- Inpatient for above issues, to see her at 2pm. She is agreeable to [facility] if they have a bed available Pt seen and examined. Psych has done eval and she qualifies for inpt treatment. She was transferred earlier this evening. When she was seen earlier this am, she didn't completely answer the question if she still wanted to be . Will benefit from the inpt treatment afforded at . Natividad Lyles APRN March 20, 2017 09:39 Manuel Coates MD March 20, 2017 20:26
--- NOTE | 2017-03-20 09:53 | NUR ---
Lori Fernandez, [facility] therapist, will be here at 14:00 to complete a consult with Pt. Nurse Practitioner informed RENÉE that Pt. is endorsing continued SI. Pt. is agreeable to going to inpatient at [facility] in [place]. RENÉE sent information to [facility] to review and spoke to Iván about the Pt. Addendum: 03/20/17 at 1413 by Elin MASTERS Pt. was accepted to [facility] for inpatient psychiatric care. Since Pt. was accepted RENÉE contacted [facility] and cancelled the consult. Pt. has family coming to visit after school and will then discharge. Pt. will be transported to [place] via EMS around 17:00. Number given to Nurse Floyd to call and give report once Pt. leaves.
--- NOTE | 2017-03-20 11:06 | NUR ---
NUTRITION ASSESSMENT Level 1 Patient: Lexy Lowry Age/Sex: 41/F Date Screened: 03-20-17 Weight: 187.4#/85.2 kg Height: 67 inches Primary Diagnosis: overdose on insulin/suicide attempt Diet Order: CL Relevant labs: glucose 83 Food allergies: N Nutrition Assessment Criteria Age over 80: N Body Mass Index (BMI) under 19: N Admission Screening Indicates Risk? N Moderate/High Risk Diagnosis: N TPN or PPN: N NPO or clear liquid diet: Yes Serum Glucose <70 or >180: N (pt. is not diabetic, she took her sons insulin) Hgb A1c >6.7: N/A Total: 0 points Risk Screen: _X_ Patient at low nutritional risk based on available data; reevaluate in 5-7 days __ Patient at moderate nutritional risk based on available data; reevaluate in 3-5 days __ Patient at high nutritional risk; complete Nutrition Assessment within 48 hours of admission.
--- NOTE | 2017-03-20 12:20 | NUR ---
Ambulated to shower
--- NOTE | 2017-03-20 12:40 | NUR ---
BG 96 - back in room - lunch tray served
--- NOTE | 2017-03-20 13:40 | NUR ---
MED REC COMPLETED-current med list obtained from Ext Med History application, PCP listing, and patient interview.
--- NOTE | 2017-03-20 14:00 | NUR ---
BG 96 - plans for transfer to @ 5 PM
--- NOTE | 2017-03-20 14:10 | NUR ---
IV fluids DC"d as ordered - sitting up in bed visiting on phone
--- NOTE | 2017-03-20 15:04 | Discharge Instructions (E) ---
Discharge Instructions Instructions You are going to [facility] Instructions as tolerates Discharge Diet: Regular Natividad Mooney APRN March 20, 2017 15:04
--- NOTE | 2017-03-20 15:09 | Discharge Summary (E FT) ---
Discharge Summary (E FT) Admit Date March 19, 2017 at 16:23 Discharge Date March 20, 2017 1500 Admitting Provider Manuel Coates MD Primary Care Provider Alan Meier MD Attending Provider Manuel Coates MD Consulting Provider Hospital Course Summary PCP: Alan Meier MD CC: Insulin/Valium Overdose, suicide attempt HPI: Lexy is a 41 year old female admitted through the ED with intentional overdose of Humalog insulin and po valium 5 mg tablets( not sure how many tablets). She also took shots of alcohol with the valium- level was 53. She stated she wanted to kill herself due to stress in the family. This was her sons medications. Poison control notified. Glucose was in the 30s when she arrived to the ED. She has not done this before. She has stress due to her sons - one is a type 1 diabetic, one with a seizure disorder, and one converting from a boy to a girl (transgender) and goes to [place]. After she took the meds she felt scared and called her friend Yohana who came to her house. When I asked her how she did it, states " I cuauhtemoc it up and shot it in my vein". The actual amount of insulin is unknown. She complains of squeezing on both sides of her ribs. EKG negative. In the ED she has received 2-3 amps D50, octreotide was given in the ED, blood sugars every 15 minutes are stable, last one 188. She is here in the ED with her and her friend Yohana. She has done well while here. BS stable. Off D5NS and maintaining sugars in the 90s Vital Signs Date Time Temp Pulse Resp B/P Pulse Ox O2 Delivery O2 Flow Rate FiO2 03/20/17 13:09 76 03/20/17 11:30 99.0 16 114/47 99 Room air GEN: Awake, alert, oriented, NAD- at bedside, she is stoic this am- flat affect HEENT: EOMI, PERRL, moist oral mucosa. CV: RRR S1 S2 normal with no murmur LUNGS: CTA B ABD: Soft, NT/ND with normal bowel sounds. EXTR: No C/C/E. Normal peripheral pulses. INTEG: No rash. NEURO: No focal motor neuro deficit. Weight: 84 kg LABS: CBC BMP Last 24 Hrs 03/19/17 11:37 Laboratory Results Past 24 Hrs 03/19/17 10:55: Urine Bilirubin Negative, Urine Blood Negative, Urine Clarity Clear, Urine Collection Type Catheter, Urine Color Yellow, Urine Glucose (UA) Trace, Urine Ketones Negative, Urine Leukocyte Esterase Negative, Urine Nitrite Negative, Urine Protein Negative, Urine Specific [place] <=1.005, Urine Urobilinogen 0.2, Urine pH 5.5 03/19/17 11:37: Acetaminophen Level < 10.0, Alanine Aminotransferase (ALT/SGPT) 39, Albumin 4.0 , Albumin/Globulin Ratio 1.290, Alkaline Phosphatase 97, Anion Gap 15.8, Aspartate Amino Transf (AST/SGOT) 25, BUN/Creatinine Ratio 26, Basophils # (Auto ) 0.0, Basophils (%) (Auto) 1, Blood Urea Nitrogen 17, Calcium Level 9.4, Calcium/Ionized Calcium Ratio 4.1, Calculated Osmolality 277, Carbon Dioxide Level 23, Chloride Level 109, Creatinine 0.65, Eosinophils # (Auto) 0.3, Eosinophils (%) (Auto) 4, Estimat Glomerular Filtration Rate 121.5, Estimated GFR (Non- 100.5, Glucose Level 38, Hematocrit 38.80, Hemoglobin 13.3, Lymphocytes # (Auto) 2.1, Lymphocytes (%) (Auto) 31, Magnesium Level 2.1, Mean Corpuscular Hemoglobin 30.5, Mean Corpuscular Hemoglobin Concent 34.3, Mean Corpuscular Volume 89, Mean Platelet Volume 10.6, Monocytes # (Auto) 0.5, Monocytes (%) (Auto) 7, Neutrophils # (Auto) 3.9, Neutrophils (%) (Auto) 58, Phosphorus Level 2.4, Platelet Count 251, Potassium Level 3.6, Red Blood Count 4.36, Red Cell Distribution Width 12.1, Salicylates Level < 1.0, Serum Alcohol 53.0, Sodium Level 144, Total Bilirubin 0.4, Total Protein 7.1, Troponin I < 0.012, White Blood Count 6.74 03/20/17 05:55: Alanine Aminotransferase (ALT/SGPT) 45, Albumin 3.0, Albumin/Globulin Ratio 1.034, Alkaline Phosphatase 65, Anion Gap 9.4, Aspartate Amino Transf (AST/SGOT ) 32, BUN/Creatinine Ratio 17, Basophils # (Auto) 0.0, Basophils (%) (Auto) 1, Blood Urea Nitrogen 11, Calcium Level 8.2, Calcium/Ionized Calcium Ratio 4.0, Calculated Osmolality 275, Carbon Dioxide Level 29, Chloride Level 109, Creatinine 0.66, Eosinophils # (Auto) 0.3, Eosinophils (%) (Auto) 4, Estimat Glomerular Filtration Rate 119.4, Estimated GFR (Non- 98.7, Glucose Level 83, Hematocrit 34.80, Hemoglobin 11.7, Lymphocytes # (Auto) 1.6, Lymphocytes (%) (Auto) 25, Mean Corpuscular Hemoglobin 30.3, Mean Corpuscular Hemoglobin Concent 33.6, Mean Corpuscular Volume 90, Mean Platelet Volume 10.3, Monocytes # (Auto) 0.5, Monocytes (%) (Auto) 8, Neutrophils # (Auto) 4.0, Neutrophils (%) (Auto) 62, Platelet Count 203, Potassium Level 3.6, Red Blood Count 3.86, Red Cell Distribution Width 12.0, Sodium Level 143, Total Bilirubin 0.5, Total Protein 5.9, White Blood Count 6.53 IMAGING ASSESSMENT/PLAN 41 year old female admitted 03-19-17 through the ED for intentional OD on insulin and valium- Suicide attempt- hypoglycemia improved, tolerated diet now. agreeable to go to [facility] Depression Anxiety Panic Attacks F/V/E- Continue D10 at 100 cc /hr, clears until she can tolerate diet- off now taking food ok Code status- Full code Disposition- Inpatient for above issues, PV to see her at 2pm. She is agreeable to [facility]-accept[facility] to take her at 5pm- secured transport. on no meds as they will evaluate her there for that. Didnt tolerate Buproprion as OP Discharge Disposition [facility] Discontinued Medications: Bupropion (Bupropion XL) 150 Mg Tab.er.24h 150 MG PO DAILY #30 Ondansetron (Ondansetron ODT) 8 Mg Tab.rapdis 8 MG PO Q8H PRN NAUSEA/VOMITING Follow up Instructions You are going to [facility] Copies to: End of Report . Natividda Mooney APRN March 20, 2017 15:09 Manuel Coates MD March 20, 2017 21:15
--- NOTE | 2017-03-20 16:50 | NUR ---
IV DC'd from [facility] - pressure held X10 minutes - drsg applied followed with coban
--- NOTE | 2017-03-20 16:55 | NUR ---
BG 185 - reports took 5 oz of Mtn Dew for migraine
--- NOTE | 2017-03-20 17:06 | NUR ---
Report given to EMS Addendum: 03/20/17 at 1738 by Mariel Jackson RN Charted by Bubba Jackson RN
--- NOTE | 2017-03-20 17:15 | NUR ---
Condition report called to Radha VAZQUEZ RN Addendum: 03/20/17 at 1738 by Mariel Jackson RN Charted by Bubba Jackson RN
--- NOTE | 2017-03-20 17:20 | NUR ---
Dismiss per EMS stretcher in street clothes and belongings sent Addendum: 03/20/17 at 1738 by Mariel Jackson RN Charted by Bubba Jackson RN
== END 2017-03-20 17:20 | DRG 918 ==
LOC: EDUNIT# 11:47 → ED 11:48 → ICU 16:23
PROVIDERS: ADMIT Family Medicine; ATTEND Family Medicine
DX: T38.3X2A Poisoning by insulin and oral hypoglycemic [antidiabetic] drugs, intentional self-harm, initial encounter (principal); T42.4X2A Poisoning by benzodiazepines, intentional self-harm, initial encounter; E16.0 Drug-induced hypoglycemia without coma; F41.0 Panic disorder [episodic paroxysmal anxiety]; F41.9 Anxiety disorder, unspecified; F32.9 Major depressive disorder, single episode, unspecified; Z98.84 Bariatric surgery status
CPT/HCPCS: 36415; 51701; 71010; 80053; 80320; 80329; 81003; 83735; 84100; 84484; 85025; 93005; 93010; 96361; 96365; 96366; 96367; 96375; 96376; 99284; 99291

== ENCOUNTER → 2017-03-19 | Outpatient (CLI) | payer BC ==
[~2017-03-19] MED LIST: BUPR150T6 PO; ONDA8TAB13 PO; SERT25TA PO
== END ==
LOC: EMS 11:30
PROVIDERS: ATTEND Emergency Medicine
DX: T45.0X2A Poisoning by antiallergic and antiemetic drugs, intentional self-harm, initial encounter (principal); T42.4X2A Poisoning by benzodiazepines, intentional self-harm, initial encounter; T38.3X2A Poisoning by insulin and oral hypoglycemic [antidiabetic] drugs, intentional self-harm, initial encounter

== ENCOUNTER → 2017-03-20 | Outpatient (CLI) | payer BC ==
[~2017-03-20] MED LIST changes: +BUPR150T6 PO; +ONDA8TAB13 PO
== END ==
LOC: EMS 17:50
PROVIDERS: ATTEND Family Medicine
DX: T42.4X2A Poisoning by benzodiazepines, intentional self-harm, initial encounter (principal); T45.0X2A Poisoning by antiallergic and antiemetic drugs, intentional self-harm, initial encounter; T38.3X2A Poisoning by insulin and oral hypoglycemic [antidiabetic] drugs, intentional self-harm, initial encounter